=== PATIENT | female | born 1980 | race Caucasian/White ===

== ENCOUNTER → 2020-08-20 | Outpatient (CLI) | payer BC ==
[~2020-08-20] MED LIST: COLACE100 MG PO; EMGALITY120 MG/1 M INJ; IBUPROFEN800 MG PO; IMITREX100 MG PO; LEXAPRO20 MG PO; OMEPRAZOLE20 M1 PO; PERCOCET 5-3251 EACH PO; PERCOCET 5/325 T1 EA PO
[2020-08-20 10:08] LABS: HEMOGLOBIN 13.5 gm/dl (12.3-15.3); RED BLOOD COUNT 4.71 M/UL (4.00-5.10); WHITE BLOOD COUNT 6.8 K/UL (4.5-11.0)
== END ==
LOC: OPSV2 09:00
PROVIDERS: Obstetrics & Gynecology
DX: Z01.812 Encounter for preprocedural laboratory examination (principal); N93.9 Abnormal uterine and vaginal bleeding, unspecified; Z88.2 Allergy status to sulfonamides
CPT/HCPCS: 36415; 81001; 85025

== ENCOUNTER 2020-08-27 10:26 | Day surgery (SDC) | payer BC ==
[~2020-08-27] VITALS: Ht 172.7 cm; Wt 86.2 kg
[~2020-08-27 10:26] MED LIST changes: -COLACE100 MG PO; -IBUPROFEN800 MG PO; -PERCOCET 5-3251 EACH PO; -PERCOCET 5/325 T1 EA PO
[2020-08-28 03:53] LABS: HEMOGLOBIN 12.1 gm/dl (12.3-15.3)
[2020-08-28] MEDS ORDERED: PERCOCET 5/325 T1 EA PO ×2 (08:38→08:49)
[2020-08-28] MEDS ORDERED: COLACE100 MG PO ×2 (08:38→08:49)
[2020-08-28] MEDS ORDERED: IBUPROFEN800 MG PO ×2 (08:38→08:49)
[2020-08-28] MEDS ORDERED: PERCOCET 5-3251 EACH PO (10:47)
== END 2020-08-28 11:32 | disposition home or self-care (01) ==
LOC: OR 10:26 → MED SURG 4 16:53 → OR 08-28 11:32
PROVIDERS: Obstetrics & Gynecology
DX: D25.1 Intramural leiomyoma of uterus (principal); N72 Inflammatory disease of cervix uteri; N73.6 Female pelvic peritoneal adhesions (postinfective); N85.8 Other specified noninflammatory disorders of uterus; G43.909 Migraine, unspecified, not intractable, without status migrainosus; K21.9 Gastro-esophageal reflux disease without esophagitis; F41.9 Anxiety disorder, unspecified; E66.9 Obesity, unspecified; Z68.34 Body mass index [BMI] 34.0-34.9, adult; Z88.2 Allergy status to sulfonamides; Z79.899 Other long term (current) drug therapy
CPT/HCPCS: 36415; 85014; 85018; J0690; J1100; J1170; J1885; J2001; J2250; J2405; J2550; J2704; J2710; J3010; J7120